=== PATIENT | female | born 1940 | race Caucasian/White ===

== ENCOUNTER 2017-12-30 11:07 | Emergency (ER) | END 2017-12-30 15:11 | disposition home or self-care (01) ==

== ENCOUNTER 2019-02-09 12:31 | Emergency (ER) | payer MEDICARE, OTHER ==
[~2019-02-09] VITALS: Ht 160 cm; Wt 72.3 kg
[~2019-02-09 12:31] MED LIST: ACET1TAB40 PO; ALPR0.5T PO; AUG875 PO; CEPH-443 PO; INSU100V27 SC; TRAM50TA2 PO
[2019-02-09 12:47] VITALS: BP 164/66; PULSE 66; RESP 18; Ht 160 cm; Wt 72.3 kg
[2019-02-09] MEDS ORDERED: KETOROLAC 15 MG INJ IV STA (13:04)
[2019-02-09] MEDS ORDERED: SOD CHLORIDE 0.9% 500 ML IV STA (13:04)
--- NOTE | 2019-02-09 13:09 | ERD ---
ER Documentation Chief Complaint Chief Complaint cp x 3 wks w/ increasing fatigue with physical activity HPI 78-year-old woman complains of 3 weeks sharp nonexertional nonradiating chest pain described as a "ball" she states she has had generalized weakness, insomnia, and stress because her daughter unexpectedly 1 month ago due to chronic renal issues. She denies fevers or chills, no shortness of breath, no cough, no calf or leg swelling, no suicidal homicidal ideation ROS All systems reviewed and are negative except as per history of present illness. Medications Home Meds Active Scripts Alprazolam* (Xanax*) 0.5 Mg Tab, 0.5 MG PO TID PRN for ANXIETY, #12 TAB Prov:FREDRICK TOLBERT MD 02/09/19 Cephalexin* (Keflex*) 500 Mg Capsule, 500 MG PO QID for 5 Days, CAP Prov:FREDRICK TOLBERT MD 02/09/19 Cephalexin* (Keflex*) 500 Mg Capsule, 500 MG PO QID for 7 Days, CAP Prov:MAKAYLA SPICER PA-C 12/30/17 Tramadol HCl (Tramadol HCl) 50 Mg Tablet, 50 MG PO Q4 PRN for PAIN, #20 TAB Prov:MAKAYLA SPICER PA-C 12/30/17 Alprazolam* (Xanax*) 0.5 Mg Tab, 0.5 MG PO TID for ANXIETY, #12 TAB Prov:FREDRICK TOLBERT MD 02/14/16 Cephalexin* (Keflex*) 500 Mg Capsule, 500 MG PO TID for 7 Days, CAP Prov:FREDRICK TOLBERT MD 02/14/16 Acetaminophen-Codeine* (Acetaminophen-Cod #3*) 300-30 Mg Tab, 1 TAB PO Q4H PRN for PAIN, #10 TAB Prov:ABHIJEET FERNANDES PA-C 08/21/15 Amoxicillin-Clavulanate K* (Augmentin*) 875 Mg Tab, 875 MG PO BID for 7 Days, TAB Prov:RADHA SUTTON MD 02/18/15 Reported Medications Insulin Lisp Protam/Lisp Human* (Humalog Mix (75/25)*) 100 Units/Ml Susp, 45 UNITS SC QPM, EA 02/18/15 Insulin Lisp Protam/Lisp Human* (Humalog Mix (75/25)*) 100 Units/Ml Susp, 40 UNITS SC QAM, EA 02/18/15 Allergies Allergies: Coded Allergies: No Known Allergies (Verified Allergy, Unknown, 01/20/11) PMhx/Soc CAD, anxiety, hypertension, diabetes mellitus, AICD in the left chest History of Surgery: Yes (HYSTERECTOMY, BLADDER, CATARACTS) Anesthesia Reaction: No Hx Neurological Disorder: No Hx Respiratory Disorders: No Hx Cardiac Disorders: Yes (HTN, cholesterol) Hx Psychiatric Problems: No Hx Miscellaneous Medical Probl: Yes (DM, ANXIETY) Hx Alcohol Use: No Hx Substance Use: No Hx Tobacco Use: No FmHx Family History: No diabetes Physical Exam Vitals Vital Signs Date Temp Pulse Resp B/P (MAP) Pulse Ox O2 O2 Flow FiO2 Time Delivery Rate 02/09/19 97.9 66 18 164/66 97 12:47 (98) Physical Exam GENERAL: Well-developed, well-nourished, well-hydrated, anxious, afebrile CARDIAC: Regular rate and rhythm, no murmurs rubs or gallops LUNGS: Clear bilaterally no wheezing crackles or stridor ABDOMEN: Soft nontender, no guarding, no rigidity, no rebound, no psoas sign no obturator sign. Normoactive bowel sounds SKIN: Warm and dry to touch, no abrasions, contusions, or hematomas, no lacerations, no ecchymosis, no target lesions, and without ulcers EXTREMITIES: No clubbing cyanosis or edema, calves are bilaterally symmetrical, no Homans sign, no popliteal cord sign. Distal pulses equal and bilateral PSYCH: Anxious appearing Result Diagram: 02/09/19 1329 02/09/19 1329 Results 24 hrs Laboratory Tests Test 02/09/19 13:29 02/09/19 14:35 02/09/19 14:46 White Blood Count 5.6 10^3/ul Red Blood Count 4.13 10^6/ul Hemoglobin 11.7 g/dl Hematocrit 35.8 % Mean Corpuscular Volume 86.7 fl Mean Corpuscular Hemoglobin 28.3 pg Mean Corpuscular 32.7 g/dl Hemoglobin Concent Red Cell Distribution Width 11.9 % Platelet Count 141 10^3/UL Mean Platelet Volume 11.2 fl Immature Granulocytes % 0.400 % Neutrophils % 58.2 % Lymphocytes % 30.0 % Monocytes % 8.1 % Eosinophils % 2.9 % Basophils % 0.4 % Nucleated Red Blood Cells % 0.0 /100WBC Immature Granulocytes # 0.020 10^3/ul Neutrophils # 3.3 10^3/ul Lymphocytes # 1.7 10^3/ul Monocytes # 0.5 10^3/ul Eosinophils # 0.2 10^3/ul Basophils # 0.0 10^3/ul Nucleated Red Blood Cells # 0.0 10^3/ul Sodium Level 140 mmol/L Potassium Level 5.5 mmol/L Chloride Level 104 mmol/L Carbon Dioxide Level 24 mmol/L Anion Gap 12 Blood Urea Nitrogen 32 mg/dl Creatinine 1.28 mg/dl Est Glomerular Filtrat mL/min Rate mL/min Glucose Level 88 mg/dl Calcium Level 9.7 mg/dl Total Bilirubin 0.4 mg/dl Direct Bilirubin 0.00 mg/dl Indirect Bilirubin 0.4 mg/dl Aspartate Amino 105 IU/L Transf (AST/SGOT) Alanine 54 IU/L Aminotransferase (ALT/SGPT) Alkaline Phosphatase 112 IU/L Troponin I < 0.012 ng/ml Total Protein 8.3 g/dl Albumin 4.4 g/dl Globulin 3.90 g/dl Albumin/Globulin Ratio 1.12 Lipase 110 U/L Urine Color YELLOW Urine Clarity SLIGHTLY CLOUDY Urine pH 6.0 Urine Specific [place] 1.011 Urine Ketones NEGATIVE mg/dL Urine Nitrite NEGATIVE mg/dL Urine Bilirubin NEGATIVE mg/dL Urine Urobilinogen NEGATIVE mg/dL Urine Leukocyte Esterase 2+ Ashlee/ul Urine Microscopic RBC 0 /HPF Urine Microscopic WBC 38 /HPF Urine Hemoglobin NEGATIVE mg/dL Urine Glucose NEGATIVE mg/dL Urine Total Protein NEGATIVE mg/dl Bedside Urine pH (LAB) 6.0 Bedside Urine Protein (LAB) Negative Bedside Urine Glucose (UA) Negative Bedside Urine Ketones (LAB) Negative Bedside Urine Blood Negative Bedside Urine Nitrite (LAB) Negative Bedside Urine Leukocyte Esterase 1+ (L Current Medications Medications Dose Sig/[place] Start Time Status Last (Trade) Ordered Route PRN Stop Time Admin Dose Reason Admin Sodium 500 ml @ Q1H STAT 02/09/19 DC 02/09/19 Chloride 500 mls/hr IV 13:04 13:45 02/09/19 14:03 Ketorolac 15 mg ONCE STAT 02/09/19 DC 02/09/19 Tromethamine IV 13:04 13:45 (Toradol) 02/09/19 13:05 Alprazolam 0.5 mg ONCE ONCE 02/09/19 DC 02/09/19 (Xanax) PO 13:30 13:45 02/09/19 13:31 Procedures/MDM IV line was established patient was placed on child monitor rhythm strip revealed a sinus rhythm at about 70 bpm with upright P and T waves. Patient was afebrile EKG performed, read by me revealed a normal sinus rhythm at 67 bpm, normal axis, right ventricular conduction delay QRS duration 100 ms, no concerning ST e levations or depressions noted. I administered 500 cc normal saline IV, alprazolam 0.5 mg p.o., Toradol 15 mg IV x1. Chest X-ray 1V Interpreted by me: Soft Tissue: No acute abnormalities Bones: No acute abnormalities Mediastinum/Cardiac Silhouette/Lungs: No acute abnormalities CBC was normal, electrolytes revealed mild hyperkalemia although she has no significant EKG changes and has no complaints of palpitations, I suspect this is lab error. I did make her aware of this and told her to have potassium repeated. Liver function tests were unremarkable, troponin was negative. urinalysis was positive for infection. Differential diagnoses considered, included but not limited to acute coronary syndrome, pulmonary embolism, aortic dissection, abdominal aortic aneurysm, se psis, stroke, meningitis, encephalitis, pneumonia, appendicitis, cholecystitis, bowel obstruction, pyelonephritis, nephrolithiasis, cystitis, as well as metabolic, hematologic, and electrolyte abnormalities. As well as abscess, cellulitis, fractures, and dislocations. Patient feels much better at this time, and vital signs are normal, symptoms have improved. I did give strict instructions to return to the ED if symptoms continue or worsen, patient will otherwise follow-up with primary care phys ician. Patient understood instructions and agreed to plan. Disclaimer: Inadvertent spelling and grammatical errors are likely due to EHR/dictation software use and do not reflect on the overall quality of patient care. Also, please note that the electronic time recorded on this note does not necessarily reflect the actual time of the patient encounter. Departure Diagnosis: Primary Impression: Chest pain Chest pain type: unspecified Qualified Codes: R07.9 - Chest pain, unspecified Additional Impressions: Grief reaction Acute UTI Condition: FREDRICK Ferrer MD Feb 09, 2019 13:09
[2019-02-09] MEDS ORDERED: ALPRAZOLAM 0.25 MG TAB PO ONE (13:30)
[2019-02-09] MEDS ORDERED: ALPR0.5T PO (14:43)
[2019-02-09] MEDS ORDERED: CEPH-443 PO (14:43)
== END 2019-02-09 17:25 | disposition home or self-care (01) ==
LOC: E/R 12:31
DX: R07.9 Chest pain, unspecified (principal); F43.22 Adjustment disorder with anxiety; N39.0 Urinary tract infection, site not specified; I10 Essential (primary) hypertension; E11.9 Type 2 diabetes mellitus without complications; I25.10 Atherosclerotic heart disease of native coronary artery without angina pectoris; Z79.4 Long term (current) use of insulin
CPT/HCPCS: 71045; 80053; 81001; 83690; 84484; 85025; J1885; J7040; 36415; 81003; 93005; 96374